=== PATIENT | male | born 1975 | race Caucasian/White ===

== ENCOUNTER 2020-10-05 14:09 | Inpatient (IN) | payer OTHER ==
[2020-10-05] MEDS ORDERED: MAGNESIUM CITRATE 300 ML BOTTLE PO PRN (17:12)
[2020-10-05] MEDS ORDERED: NICOTINE POLACRILEX 2 MG GUM BUC PRN (17:12)
[2020-10-05] MEDS ORDERED: MAG HYDROX/AL HYDROX/SIMETH 30 ML UNIT-DOSE CUP PO PRN (17:12)
[2020-10-05] MEDS ORDERED: MENTHOL/PHENOL 1 EACH UD MM PRN (17:12)
[2020-10-05] MEDS ORDERED: ACETAMINOPHEN 325 MG TABLET (FP) PO PRN ×2 (17:12)
[2020-10-05] MEDS ORDERED: MAGNESIUM HYDROX 2400MG/30ML ORAL SUSPENSION 30 ML CUP PO PRN (17:12)
[2020-10-05] MEDS ORDERED: METHOCARBAMOL 500 MG TABLET PO PRN (17:12)
[2020-10-05] MEDS ORDERED: ONDANSETRON *ODT* 4 MG TABLET SL PRN (17:12)
[2020-10-05] MEDS ORDERED: BISMUTH SUBSALICYLATE 524 MG/30 ML UD PO PRN (17:12)
[2020-10-05] MEDS ORDERED: IBUPROFEN 400 MG TABLET (FP) PO PRN (17:12)
[2020-10-05 17:33] VITALS: BMI 34.9
[2020-10-05] MEDS: chlordiazePOXIDE HCL 25 MG CAPSULE PO PRN (18:48)
[2020-10-05] MEDS: hydrOXYzine PAMOATE 25 MG CAPSULE (FP) PO SCH ×2 (18:48→22:16)
[2020-10-05] MEDS: chlordiazePOXIDE HCL 25 MG CAPSULE PO SCH (22:15)
[2020-10-05] MEDS: THIAMINE HCL 100 MG TABLET (FP) PO SCH (22:16)
[2020-10-05] MEDS: MELATONIN 5 MG TABLETS PO SCH (22:45)
[2020-10-06] MEDS: chlordiazePOXIDE HCL 25 MG CAPSULE PO SCH ×4 (06:16→22:18)
[2020-10-06] MEDS: hydrOXYzine PAMOATE 25 MG CAPSULE (FP) PO SCH ×5 (06:16→22:44)
[2020-10-06 09:22] LABS: HEMATOCRIT 38.2 % (35.4-49); HEMOGLOBIN 13.1 GM/dL (11.7-16.9); MCH 36.3 pg (25.7-33.7); MCHC 34.3 g/dl (32.0-35.9); MEAN CELL VOLUME 105.9 fl (80-96); MEAN PLT VOLUME 8.6 fl (7.5-11.1); PLATELET COUNT 212 K/MM3 (134-434); RBC 3.61 M/mm3 (4.00-5.60); RDW 13.7 % (11.9-15.9); WHITE BLOOD COUNT 7.6 K/mm3 (4.0-10.0)
[2020-10-06 09:27] LABS: POTASSIUM 3.5 mmol/L (3.5-5.1)
[2020-10-06 09:30] LABS: ALBUMIN 3.6 g/dl (3.4-5.0); CALCIUM 8.4 mg/dL (8.5-10.1)
[2020-10-06 09:31] LABS: BLOOD UREA NITROGEN 7.3 mg/dL (7-18)
[2020-10-06 09:34] LABS: CREATININE 0.8 mg/dL (0.55-1.3)
[2020-10-06 09:35] LABS: BILIRUBIN,TOTAL 0.8 mg/dL (0.2-1); TOT PROT 7.4 g/dl (6.4-8.2)
[2020-10-06] MEDS: NICOTINE 21 MG/24 HOURS TOPICAL PATCH TD SCH (10:23)
[2020-10-06] MEDS: PRENATAL VITAMINS W/ FOLIC ACID TABLET (FP) PO SCH (10:23)
[2020-10-06] MEDS: levETIRAcetam 500 MG TABLET (FP) PO SCH ×2 (11:32→22:19)
[2020-10-06] MEDS: chlordiazePOXIDE HCL 25 MG CAPSULE PO PRN (12:39)
[2020-10-06] MEDS ORDERED: amLODIPine BESYLATE 10 MG TABLET (FP) PO ONE (14:15)
[2020-10-06] MEDS: THIAMINE HCL 100 MG TABLET (FP) PO SCH (22:19)
[2020-10-06] MEDS: MELATONIN 5 MG TABLETS PO SCH (22:44)
[2020-10-07 00:53] LABS: PH,URINE 6.5 (5.0-8.0); URINE APPEARANCE CLEAR; URINE BILIRUBIN NEGATIVE (NEGATIVE); URINE COLOR YELLOW; URINE GLUCOSE (UA) NEGATIVE (NEGATIVE); URINE KETONE NEGATIVE (NEGATIVE); URINE LEUK ESTERASE NEGATIVE (NEGATIVE); URINE NITRITE NEGATIVE (NEGATIVE); URINE PROTEIN NEGATIVE (NEGATIVE)
[2020-10-07] MEDS: hydrOXYzine PAMOATE 25 MG CAPSULE (FP) PO SCH ×5 (06:10→22:24)
[2020-10-07] MEDS: chlordiazePOXIDE HCL 25 MG CAPSULE PO SCH ×4 (06:11→22:23)
[2020-10-07] MEDS: levETIRAcetam 500 MG TABLET (FP) PO SCH ×2 (10:29→22:23)
[2020-10-07] MEDS: amLODIPine BESYLATE 10 MG TABLET (FP) PO SCH (10:29)
[2020-10-07] MEDS: NICOTINE 21 MG/24 HOURS TOPICAL PATCH TD SCH (10:30)
[2020-10-07] MEDS: LISINOPRIL 10 MG TABLET PO SCH (11:14)
[2020-10-07] MEDS: PRENATAL VITAMINS W/ FOLIC ACID TABLET (FP) PO SCH (11:14)
[2020-10-07] MEDS: THIAMINE HCL 100 MG TABLET (FP) PO SCH (22:23)
[2020-10-07] MEDS: MELATONIN 5 MG TABLETS PO SCH (22:24)
[2020-10-08] MEDS ORDERED: chlordiazePOXIDE HCL 10 MG CAPSULE PO PRN
[2020-10-08] MEDS: hydrOXYzine PAMOATE 25 MG CAPSULE (FP) PO SCH ×5 (05:24→23:30)
[2020-10-08] MEDS: chlordiazePOXIDE HCL 10 MG CAPSULE PO SCH ×4 (05:24→22:32)
[2020-10-08] MEDS: levETIRAcetam 500 MG TABLET (FP) PO SCH ×2 (10:20→22:32)
[2020-10-08] MEDS: LISINOPRIL 10 MG TABLET PO SCH (10:20)
[2020-10-08] MEDS: amLODIPine BESYLATE 10 MG TABLET (FP) PO SCH (10:20)
[2020-10-08] MEDS: PRENATAL VITAMINS W/ FOLIC ACID TABLET (FP) PO SCH (10:22)
[2020-10-08] MEDS: NICOTINE 21 MG/24 HOURS TOPICAL PATCH TD SCH (10:23)
[2020-10-08] MEDS: THIAMINE HCL 100 MG TABLET (FP) PO SCH (22:32)
[2020-10-08] MEDS: MELATONIN 5 MG TABLETS PO SCH (23:30)
[2020-10-09] MEDS ORDERED: chlordiazePOXIDE HCL 10 MG CAPSULE PO SCH (05:00)
[2020-10-09] MEDS: hydrOXYzine PAMOATE 25 MG CAPSULE (FP) PO SCH ×2 (05:22→10:07)
[2020-10-09 09:34] VITALS: BP 136/86; PULSE 106; TEMP 97.1
[2020-10-09] MEDS: amLODIPine BESYLATE 10 MG TABLET (FP) PO SCH (10:04)
[2020-10-09] MEDS: LISINOPRIL 10 MG TABLET PO SCH (10:04)
[2020-10-09] MEDS: levETIRAcetam 500 MG TABLET (FP) PO SCH (10:04)
[2020-10-09] MEDS: PRENATAL VITAMINS W/ FOLIC ACID TABLET (FP) PO SCH (10:06)
[2020-10-09] MEDS: NICOTINE 21 MG/24 HOURS TOPICAL PATCH TD SCH (10:06)
[2020-10-10] MEDS ORDERED: chlordiazePOXIDE HCL 10 MG CAPSULE PO ONE (05:00)
== END 2020-10-09 13:05 | disposition home or self-care (01) | DRG 775 ==
LOC: YASAS 14:09 → Y6N 17:44
PROVIDERS: ADMIT Allergy & Immunology; ATTEND Allergy & Immunology
PROC: HZ2ZZZZ Detoxification Services for Substance Abuse Treatment (ICD-10-PCS; principal; 2020-10-05)
DX: F10.230 Alcohol dependence with withdrawal, uncomplicated (principal); F10.220 Alcohol dependence with intoxication, uncomplicated; F17.210 Nicotine dependence, cigarettes, uncomplicated; I10 Essential (primary) hypertension; R25.1 Tremor, unspecified; R00.0 Tachycardia, unspecified; Z86.69 Personal history of other diseases of the nervous system and sense organs; Z91.14 Patient's other noncompliance with medication regimen; Z91.013 Allergy to seafood
CPT/HCPCS: 36415; 80053; 81003; 85027; 86780; 93005; 93010; C9803; U0003

== ENCOUNTER 2023-07-30 16:41 | Inpatient (IN) | payer OTHER ==
[2023-07-30 19:19] VITALS: BMI 36.5
[2023-07-30] MEDS ORDERED: METOPROLOL TARTRATE 25 MG TABLET (FP) PO ONE (20:31)
[2023-07-30] MEDS ORDERED: METOPROLOL TARTRATE 25 MG TABLET (FP) ONE (20:33)
[2023-07-30] MEDS ORDERED: chlordiazePOXIDE HCL 25 MG CAPSULE PO ONE (20:34)
[2023-07-30] MEDS ORDERED: chlordiazePOXIDE HCL 25 MG CAPSULE ONE (20:37)
[2023-07-30] MEDS ORDERED: ONDANSETRON *ODT* 4 MG TABLET SL PRN (20:47)
[2023-07-30] MEDS ORDERED: DICYCLOMINE HCL 10 MG CAPSULE PO PRN (20:47)
[2023-07-30] MEDS ORDERED: NALOXONE HCL 0.4 MG/ML VIAL IM PRN (20:47)
[2023-07-30] MEDS ORDERED: chlordiazePOXIDE HCL 25 MG CAPSULE PO PRN (20:47)
[2023-07-30] MEDS ORDERED: guaiFENesin 600 MG TABLET.ER (FP) PO PRN (20:47)
[2023-07-30] MEDS ORDERED: MAGNESIUM HYDROX 2400MG/30ML ORAL SUSPENSION 30 ML CUP PO PRN (20:47)
[2023-07-30] MEDS ORDERED: IBUPROFEN 600 MG TABLET (FP) PO PRN (20:47)
[2023-07-30] MEDS ORDERED: NICOTINE POLACRILEX 4 MG GUM BUC PRN (20:47)
[2023-07-30] MEDS ORDERED: BISMUTH SUBSALICYLATE 524 MG/30 ML PO PRN (20:47)
[2023-07-30] MEDS ORDERED: BENZONATATE 200 MG CAPSULE PO PRN (20:47)
[2023-07-30] MEDS ORDERED: MAG HYDROX/AL HYDROX/SIMETH 30 ML UNIT-DOSE CUP PO PRN (20:47)
[2023-07-30] MEDS ORDERED: BENZOCAINE/MENTHOL (CHLORASEPTIC ) LOZENGE MM PRN (20:47)
[2023-07-30] MEDS ORDERED: NALOXONE HCL (KLOXXADO) 8 MG SPRAY NS PRN (20:47)
[2023-07-30] MEDS ORDERED: LOPERAMIDE HCL 2 MG CAPSULE PO PRN (20:47)
[2023-07-30] MEDS ORDERED: IBUPROFEN 400 MG TABLET (FP) PO PRN (20:47)
[2023-07-30] MEDS ORDERED: POLYETHYLENE GLYCOL (HEALTHYLAX) 3350 17 GM PACKET PO PRN (20:47)
[2023-07-30] MEDS ORDERED: ACETAMINOPHEN 325 MG TABLET (FP) PO PRN (20:47)
[2023-07-30] MEDS: MELATONIN 5 MG TABLETS PO SCH (22:39)
[2023-07-30] MEDS: THIAMINE HCL 100 MG TABLET (FP) PO SCH (22:39)
[2023-07-30] MEDS: chlordiazePOXIDE HCL 25 MG CAPSULE PO SCH (22:39)
[2023-07-30] MEDS: levETIRAcetam 500 MG TABLET (FP) PO SCH (22:39)
[2023-07-30] MEDS ORDERED: LISINOPRIL 10 MG TABLET PO ONE (22:50)
[2023-07-31] MEDS: chlordiazePOXIDE HCL 25 MG CAPSULE PO SCH ×4 (05:56→22:25)
[2023-07-31] MEDS: NICOTINE 21 MG/24 HOURS TOPICAL PATCH TD SCH (10:27)
[2023-07-31] MEDS: amLODIPine BESYLATE 5 MG TABLET (FP) PO SCH (10:27)
[2023-07-31] MEDS: levETIRAcetam 500 MG TABLET (FP) PO SCH ×2 (10:27→22:25)
[2023-07-31] MEDS: PRENATAL VITAMINS W/ FOLIC ACID TABLET (FP) PO SCH (10:27)
[2023-07-31 12:19] LABS: HEMATOCRIT 39.3 % (35.4-49); MCH 33.9 pg (25.7-33.7); MCHC 33.1 g/dl (32.0-35.9); MEAN CELL VOLUME 102.5 fl (80-96); MEAN PLT VOLUME 9.1 fl (7.5-11.1); PLATELET COUNT 209 10^3/uL (134-434); RBC 3.84 M/mm3 (4.00-5.60); RDW 13.4 % (11.9-15.9); WHITE BLOOD COUNT 8.3 K/mm3 (4.0-10.0)
[2023-07-31 12:27] LABS: POTASSIUM 3.1 mmol/L (3.5-5.1)
[2023-07-31 12:32] LABS: CALCIUM 8.6 mg/dL (8.5-10.1)
[2023-07-31 12:33] LABS: ALBUMIN 3.4 g/dl (3.4-5.0); BLOOD UREA NITROGEN 14.2 mg/dL (7-18)
[2023-07-31 12:36] LABS: CREATININE 0.9 mg/dL (0.55-1.3)
[2023-07-31 12:37] LABS: TOT PROT 6.8 g/dl (6.4-8.2)
[2023-07-31 12:39] LABS: BILIRUBIN,TOTAL 0.8 mg/dL (0.2-1)
[2023-07-31] MEDS: MELATONIN 5 MG TABLETS PO SCH (22:25)
[2023-07-31] MEDS: THIAMINE HCL 100 MG TABLET (FP) PO SCH (22:25)
[2023-08-01] MEDS: chlordiazePOXIDE HCL 25 MG CAPSULE PO SCH ×4 (05:51→22:10)
[2023-08-01] MEDS: PRENATAL VITAMINS W/ FOLIC ACID TABLET (FP) PO SCH (10:16)
[2023-08-01] MEDS: levETIRAcetam 500 MG TABLET (FP) PO SCH ×2 (10:16→21:49)
[2023-08-01] MEDS: amLODIPine BESYLATE 5 MG TABLET (FP) PO SCH (10:17)
[2023-08-01] MEDS: NICOTINE 21 MG/24 HOURS TOPICAL PATCH TD SCH (10:19)
[2023-08-01] MEDS ORDERED: POTASSIUM CHLORIDE ORAL LIQUID 20 MEQ/15 ML PO ONE ×2 (17:36→23:00)
[2023-08-01] MEDS: MELATONIN 5 MG TABLETS PO SCH (21:49)
[2023-08-01] MEDS: THIAMINE HCL 100 MG TABLET (FP) PO SCH (21:49)
[2023-08-01] MEDS ORDERED: cloNIDine HCL 0.1 MG TABLET PO ONE (22:01)
[2023-08-02] MEDS ORDERED: chlordiazePOXIDE HCL 10 MG CAPSULE PO PRN
[2023-08-02] MEDS: chlordiazePOXIDE HCL 10 MG CAPSULE PO SCH ×4 (05:44→22:25)
[2023-08-02] MEDS: amLODIPine BESYLATE 5 MG TABLET (FP) PO SCH (10:12)
[2023-08-02] MEDS: levETIRAcetam 500 MG TABLET (FP) PO SCH ×2 (10:12→22:25)
[2023-08-02] MEDS: NICOTINE 21 MG/24 HOURS TOPICAL PATCH TD SCH (10:13)
[2023-08-02] MEDS: PRENATAL VITAMINS W/ FOLIC ACID TABLET (FP) PO SCH (10:13)
[2023-08-02] MEDS ORDERED: amLODIPine BESYLATE 5 MG TABLET (FP) PO ONE (14:18)
[2023-08-02] MEDS ORDERED: LISINOPRIL 5 MG TABLET PO ONE (21:18)
[2023-08-02] MEDS: THIAMINE HCL 100 MG TABLET (FP) PO SCH (22:25)
[2023-08-02] MEDS: MELATONIN 5 MG TABLETS PO SCH (22:25)
[2023-08-03] MEDS: chlordiazePOXIDE HCL 10 MG CAPSULE PO SCH ×2 (05:45→17:27)
[2023-08-03] MEDS ORDERED: amLODIPine BESYLATE 10 MG TABLET (FP) PO SCH ×2 (10:00)
[2023-08-03] MEDS: levETIRAcetam 500 MG TABLET (FP) PO SCH ×2 (10:08→22:07)
[2023-08-03] MEDS: PRENATAL VITAMINS W/ FOLIC ACID TABLET (FP) PO SCH (10:08)
[2023-08-03] MEDS: NICOTINE 21 MG/24 HOURS TOPICAL PATCH TD SCH (10:09)
[2023-08-03 12:04] LABS: POTASSIUM 4.2 mmol/L (3.5-5.1)
[2023-08-03 12:18] LABS: BLOOD UREA NITROGEN 10.6 mg/dL (7-18); CALCIUM 9.5 mg/dL (8.5-10.1)
[2023-08-03 12:21] LABS: CREATININE 0.7 mg/dL (0.55-1.3)
[2023-08-03] MEDS ORDERED: LISINOPRIL 5 MG TABLET PO SCH (13:30)
[2023-08-03 20:51] VITALS: RESP 20
[2023-08-03] MEDS: MELATONIN 5 MG TABLETS PO SCH (22:07)
[2023-08-03] MEDS: THIAMINE HCL 100 MG TABLET (FP) PO SCH (22:07)
[2023-08-04] MEDS ORDERED: chlordiazePOXIDE HCL 10 MG CAPSULE PO ONE (05:00)
[2023-08-04 06:04] VITALS: TEMP 97.5
[2023-08-04 09:16] VITALS: BP 126/72; PULSE 77
== END 2023-08-04 09:30 | disposition home or self-care (01) | DRG 775 ==
LOC: YASAS 16:41 → Y3N 20:45
PROVIDERS: ADMIT Allergy & Immunology; ATTEND Surgery
PROC: HZ2ZZZZ Detoxification Services for Substance Abuse Treatment (ICD-10-PCS; principal; 2023-07-30)
DX: F10.230 Alcohol dependence with withdrawal, uncomplicated (principal); F17.210 Nicotine dependence, cigarettes, uncomplicated; F10.282 Alcohol dependence with alcohol-induced sleep disorder; E87.6 Hypokalemia; G40.909 Epilepsy, unspecified, not intractable, without status epilepticus; I10 Essential (primary) hypertension; E66.9 Obesity, unspecified; Z68.36 Body mass index [BMI] 36.0-36.9, adult; Z87.19 Personal history of other diseases of the digestive system; Z91.81 History of falling
CPT/HCPCS: 36415; 80048; 80053; 84132; 85027; 86780; 87635; 87811